=== PATIENT | male | born 1960 | race Caucasian/White ===

== ENCOUNTER → 2020-01-16 | Outpatient (CLI) | payer OTHER ==
[~2020-01-16] MED LIST: BLOOD PRESSURE MED; FLEXERIL5 MG PO; VOLTAREN50 M1 PO
== END | disposition home or self-care (01) ==
LOC: COVID19 10:08
PROVIDERS: ATTEND Family Medicine
DX: Z20.828 Contact with and (suspected) exposure to other viral communicable diseases (principal)

== ENCOUNTER → 2022-04-16 | Outpatient (CLI) | payer OTHER | END | disposition home or self-care (01) | LOC: US 03-17 09:30 | PROVIDERS: ATTEND Internal Medicine Nephrology | DX: K21.9 Gastro-esophageal reflux disease without esophagitis (principal); N28.1 Cyst of kidney, acquired ==